=== PATIENT | male | born 1990 ===

== ENCOUNTER 2017-02-21 09:43 | Emergency (ER) | payer BC, OTHER ==
[2017-02-21 09:48] VITALS: BMI 24.3
[2017-02-21 09:49] VITALS: BP 117/63; PULSE 73; RESP 19; TEMP 98.2; O2SAT 100
--- NOTE | 2017-02-21 10:33 | ED PDOC ---
HPI: CCC, URI, Sore Throat Time Seen by Provider: 02/21/17 10:33 Chief Complaint (Nursing): ENT Problem Chief Complaint (Provider): ear pain History Per: Patient Additional Complaint(s): 26-year-old male presents to emergency department with left ear pain 2 days. Patient states he feels as if his ear is clogged. Patient tried to flush out his ear with [id number] drops and water but this did not help. He denies fever or chills, denies active drainage or bleeding. Right ear unaffected. Past Medical History Reviewed: Historical Data, Nursing Documentation, Vital Signs Vital Signs: Last Vital Signs Temp 98.2 F 02/21/17 09:47 Pulse 73 02/21/17 09:47 Resp 19 02/21/17 09:47 BP 117/63 02/21/17 09:47 Pulse Ox 100 02/21/17 10:33 - Medical History PMH: No Chronic Diseases - Surgical History Surgical History: No Surg Hx - Family History Family History: States: No Known Family Hx - Living Arrangements Living Arrangements: With Family - Social History Current smoker - smoking cessation education provided: No Alcohol: None Drugs: Denies - Home Medications Home Medications: Ambulatory Orders Medication Instructions Recorded Ciprofloxacin 0.3% [Ciloxan 0.3% 1 drop OD QID #1 bottle 03/19/15 Ophth] Neomycin/Polymyxin/Hydrocort 4 drop TOP BID #1 bottle 02/21/17 [Cortisporin Otic Soln] - Allergies Allergies/Adverse Reactions: Allergies Allergy/AdvReac Type Severity Reaction Status Date / Time No Known Allergies Allergy Verified 02/21/17 10:31 Review of Systems ROS Statement: Except As Marked, All Systems Reviewed And Found Negative Constitutional: Negative for: Fever ENT: Positive for: Ear Pain (left, x 2 days). Negative for: Nose Congestion, Throat Pain, Throat Swelling Respiratory: Negative for: Cough Gastrointestinal: Negative for: Nausea, Vomiting Neurological: Negative for: Headache, Dizziness Physical Exam - Reviewed Nursing Documentation Reviewed: Yes Vital Signs Reviewed: Yes - Physical Exam Appears: Positive for: Well, Non-toxic, No Acute Distress Skin: Positive for: Normal Color. Negative for: Rash Eye Exam: Positive for: Normal appearance, EOMI, PERRL ENT: Positive for: Other (Right ear is normal, Left ear - TM poorly visualized, canal is erythematous with exudate and dried blood). Negative for: Nasal Congestion, Pharyngeal Erythema, Tonsillar Exudate, Tonsillar Swelling Cardiovascular/Chest: Positive for: Regular Rate, Rhythm Respiratory: Positive for: Normal Breath Sounds Neurologic/Psych: Positive for: Alert, Oriented - ECG O2 Sat by Pulse Oximetry: 100 Pulse Ox Interpretation: Normal Medical Decision Making Medical Decision Making: Impression: Left otitis externa Plan: PO motrin in ED Rx given for cortisporin. Advised NSAID's for pain and follow up in 2-3 days with ear, nose and throat specialist, referral provided. Disposition - Clinical Impression Clinical Impression: Left otitis externa - Patient ED Disposition Is Patient to be Admitted: No Counseled Patient/Family Regarding: Diagnosis, Need For Followup, Rx Given - Disposition Referrals: Cristiano Cordero MD [Staff Provider] - Disposition: Routine/Home Disposition Time: 10:49 Condition: STABLE Additional Instructions: Apply drops as directed on rx. Over the counter advil or tylenol for pain. Follow up in 2-3 days with ear, nose and throat specialist. Prescriptions: Neomycin/Polymyxin/Hydrocort [Cortisporin Otic Soln] 4 drop TOP BID #1 bottle Instructions: Otitis Externa (ED)
== END 2017-02-21 11:01 | disposition home or self-care (01) ==
LOC: H.ER 09:43
DX: H60.92 Unspecified otitis externa, left ear (principal)